=== PATIENT | male | born 1985 | race Caucasian/White ===

== ENCOUNTER 2021-01-27 15:00 | Emergency (ER) | payer SELFPAY ==
[2021-01-27 15:17] VITALS: BP 139/84; PULSE 95; RESP 18; TEMP 36.2; O2SAT 98
[2021-01-27] MEDS: diphenhydrAMINE HCl INJ 50 MG/ML VIAL IV PUSH (16:09)
--- NOTE | 2021-01-27 16:40 | ED.ALLEREA ---
HPI - Allergic Reaction General Chief complaint: Allergic Reaction Stated complaint: allergic reaction Time Seen by Provider: 01/27/21 15:07 Source: patient Mode of arrival: ambulatory Limitations: no limitations History of Present Illness HPI narrative: 35-year-old male Basically healthy He was doing yard work around 1 PM and was stung on the left side of the face he believes by a yellow jacket He took 25 mg of Benadryl He has a burning feeling in a rash on the left side of his face and scalp and feels like his lips may be swollen, also had some itching and a possible rash on his trunk No stridor or hoarseness, no weakness or dizziness, no wheezing or shortness of breath He does not have a previous history of anaphylaxis with bee stings Review of Systems Review of Systems: All systems reviewed & are unremarkable except as noted in HPI and below Constitutional: Constitutional: Reports no additional constitutional complaints, Denies chills, Denies fatigue, Denies fever(s), Denies headache(s) and Reports weakness Eyes: Eyes: Reports no additional eye complaints and Denies change in vision ENT: Denies headache(s) and Denies sore throat Comments: No stridor or hoarseness Cardiovascular: Cardiovascular: Denies chest pain, Denies radiating jaw, neck or arm pain and Denies dyspnea Respiratory: Respiratory: Denies cough, Denies dyspnea and Denies wheezing Gastrointestinal: Gastrointestinal: Denies abdominal pain, Denies diarrhea and Denies vomiting Genitourinary: Genitourinary: Denies dysuria and Denies urinary frequency Musculoskeletal: Musculoskeletal: Denies deformity, Denies arthralgias, Denies joint swelling and Denies numbness Integumentary/Breasts: Skin/Breast: Reports pruritus, Reports erythema, Reports rash and Denies wounds Neurologic: Denies headache(s), Denies focal weakness and Denies numbness Psychiatric: Psychiatric: Reports no additional psychiatric complaints Endocrine: Endocrine: Reports no additional endocrine complaints Hematologic/Lymphatic: Hematologic/Lymphatic: Reports no additional hematologic/lymphatic complaints Allergic/Immunologic: Allergic/Immunologic: Reports no additional allergic/immunologic complaints Exam Const: General: cooperative, healthy appearing, no acute distress and alert Orientation/consciousness: patient oriented x3 (alert) HENMT: Head: normocephalic and atraumatic Ears: external ears normal General nose exam: no epistaxis Face and sinus: sinuses nontender Other: Mild erythema to left side of face, slight swelling, possibly slight swelling of the lips although nothing which appears very severe, no intraoral swelling, no stridor Eyes: Conjunctivae: conjunctivae normal EOM: EOMs intact bilaterally Neck: Neck: normal visual inspection, supple and no JVD Resp: Effort & Inspection: normal respiratory effort and not labored Auscultation: clear to auscultation bilaterally, no rales, no rhonchi, no wheezes and other (BS =) Cardio: Rate: regular rate Rhythm: regular rhythm Heart sounds: no murmurs Skin: General skin exam: normal color and no rashes or lesions noted Other: No urticaria, he does have a little seborrheic dermatitis on his chest Neuro: General: patient oriented x3 (alert) Speech: normal speech Extrem: General: normal to inspection Psych: Affect: normal affect Course Vital Signs Vital signs: Vital Signs Temperature 36.2 C L 01/27/21 15:17 Pulse Rate 95 01/27/21 15:17 Respiratory Rate 18 01/27/21 15:17 Blood Pressure 139/84 01/27/21 15:17 Pulse Oximetry 98 01/27/21 15:17 Temperature 36.2 C L 01/27/21 15:17 Pulse Rate 95 01/27/21 15:17 Respiratory Rate 18 01/27/21 15:17 Blood Pressure 139/84 01/27/21 15:17 Pulse Oximetry 98 01/27/21 15:17 Discharge Plan Discharge Clinical Impression: Bee sting reaction Patient Disposition: Home, Self-Care Condition: Stable Instructions: Insect Bite or Sting (ED)
[2021-01-27 17:06] VITALS: BP 136/70; PULSE 86; RESP 14; O2SAT 98
[2021-01-27 18:00] VITALS: BP 131/84; PULSE 87; RESP 16; O2SAT 98
== END 2021-01-27 18:05 | disposition home or self-care (01) ==
PROVIDERS: Emergency Provider Emergency Medicine
DX: T63.441A Toxic effect of venom of bees, accidental (unintentional), initial encounter (principal)
CPT/HCPCS: 96374; 96375; 99284; J1100; J1200